=== PATIENT | female | born 1985 | race Caucasian/White ===

== ENCOUNTER 2017-02-13 05:26 | Emergency (ER) | payer OTHER ==
[2017-02-13] MEDS ORDERED: SODIUM CHLORIDE 0.9% 1,000 ML IV ONE ×2 (05:45→05:59)
[2017-02-13] MEDS ORDERED: ONDANSETRON 4 MG/2 ML VIAL ONE ×3 (05:45→07:42)
--- NOTE | 2017-02-13 05:48 | ED Physician Documentation ---
History of Present Illness - Stated complaint Stated Complaint: VOMITING,DIARRHEA - Chief complaint Chief Complaint: Abd Pain - History obtained from History obtained from: Patient - History of Present Illness Timing: Enter time (00:00 (midnight)), Today Pain level now: 7 (low back pain) Radiates to: does not radiate Improved by: rest Worsened by: movement - Additonal information Additional information: c/o sudden onset nausea, vomiting, diarrhea since midnight. also c/o low back pain midline which she attributes to driving for several hours per day for the past few days. Review of Systems Constitutional: reports: Reviewed and negative Cardiac: reports: Reviewed and negative Respiratory: reports: Reviewed and negative GI: reports: Nausea, Vomiting, Diarrhea. 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 HEENT: Tonsil/Adenoidectomy - Present Medications Home Medications: Ambulatory Orders Medication Instructions Recorded Confirmed Bcp 1 tab PO DAILY 02/13/17 Diphenoxylate/Atropine [Lomotil] 1 each PO QID PRN #14 tablet 02/13/17 Ondansetron Odt [Zofran] 4 mg TL Q6H PRN #10 tablet 02/13/17 Unisom 1 tab PO QPM 02/13/17 Venlafaxine HCl 1 tab PO DAILY 02/13/17 02/13/17 - Allergies Allergies/Adverse Reactions: Allergies Allergy/AdvReac Type Severity Reaction Status Date / Time No Known Drug Allergies Allergy Verified 02/13/17 05:33 PD ED PE NORMAL - Vitals Vital signs reviewed: Yes - General General: Alert and oriented X 3, No acute distress, Well developed/nourished - HEENT HEENT: Moist mucous membranes - Neck Neck: Supple, no meningeal sign - Cardiac Cardiac: RRR, No murmur - Respiratory Respiratory: No respiratory distress, Clear bilaterally - Abdomen Abdomen: Normal bowel sounds, Soft, Non tender, Non distended - Back Back: No CVA TTP, No spinal TTP - Derm Derm: Normal color, Warm and dry, No rash - Extremities Extremities: No edema Results - Vitals Vitals: Vital Signs - 24 hr 02/13/17 02/13/17 02/13/17 05:30 06:24 07:04 Temperature 35.9 C L Heart Rate 120 H 84 83 Respiratory 20 16 16 Rate Blood Pressure 116/83 H 100/54 L 110/67 O2 Saturation 99 100 100 02/13/17 08:31 Temperature 36.1 C L Heart Rate 80 Respiratory 16 Rate Blood Pressure 116/68 O2 Saturation 100 Oxygen O2 Source Room air - Labs Labs: Laboratory Tests 02/13/17 02/13/17 02/13/17 05:42 05:42 07:25 WBC 19.6 H RBC 5.22 Hgb 15.3 Hct 46.0 MCV 88.1 MCH 29.2 MCHC 33.2 RDW 12.9 Plt Count 310 MPV 8.4 Neut # 17.6 H Lymph # 1.0 L Irwin # 0.9 Eos # 0.1 Baso # 0.1 Absolute Nucleated RBC 0.00 Nucleated RBCs 0.0 Sodium 138 Potassium 3.1 L Chloride 104 Carbon Dioxide 22 Anion Gap 12.0 BUN 17 Creatinine 1.0 Estimated GFR (MDRD) 65 L Glucose 143 H Calcium 9.7 Total Bilirubin 0.6 AST 22 ALT 32 Alkaline Phosphatase 90 Total Protein 8.5 H Albumin 4.8 Globulin 3.7 Albumin/Globulin Ratio 1.3 Lipase 17 L Urine Color DARK YELLOW Urine Clarity CLEAR Urine pH 6.5 Ur Specific Reagan 1.025 Urine Protein 30 H Urine Glucose (UA) NEGATIVE Urine Ketones >=80 H Urine Occult Blood NEGATIVE Urine Nitrite POSITIVE H Urine Bilirubin NEGATIVE Urine Urobilinogen 0.2 (NORMAL) Ur Leukocyte Esterase NEGATIVE Urine RBC 0-5 Urine WBC 0-3 Ur Squamous Epith Cells FEW Squamous Urine Bacteria Many H Urine Mucus Moderate Strands Ur Microscopic Review INDICATED Urine HCG, Qual 02/13/17 07:25 WBC RBC Hgb Hct MCV MCH MCHC RDW Plt Count MPV Neut # Lymph # Irwin # Eos # Baso # Absolute Nucleated RBC Nucleated RBCs Sodium Potassium Chloride Carbon Dioxide Anion Gap BUN Creatinine Estimated GFR (MDRD) Glucose Calcium Total Bilirubin AST ALT Alkaline Phosphatase Total Protein Albumin Globulin Albumin/Globulin Ratio Lipase Urine Color Urine Clarity Urine pH Ur Specific Reagan 1.025 Urine Protein Urine Glucose (UA) Urine Ketones Urine Occult Blood Urine Nitrite Urine Bilirubin Urine Urobilinogen Ur Leukocyte Esterase Urine RBC Urine WBC Ur Squamous Epith Cells Urine Bacteria Urine Mucus Ur Microscopic Review Urine HCG, Qual NEGATIVE PD MEDICAL DECISION MAKING - ED course Complexity details: reviewed results, re-evaluated patient, considered differential, d/w patient Departure - Departure Disposition: 01 Home, Self Care Clinical Impression: Gastroenteritis Condition: Good Instructions: ED Gastroenteritis Viral Follow-Up: FACUNDO Dunne [Provider Group] Prescriptions: Diphenoxylate/Atropine [Lomotil] 1 each PO QID PRN #14 tablet PRN Reason: Diarrhea Ondansetron Odt [Zofran] 4 mg TL Q6H PRN #10 tablet PRN Reason: Nausea / Vomiting Discharge Date/Time: 02/13/17 08:31
[2017-02-13] MEDS ORDERED: ONDANSETRON 4 MG/2 ML VIAL IVP STA ×3 (05:58→07:39)
[2017-02-13 06:02] LABS: ALBUMIN/GLOBULIN RATIO 1.3 (1.0-2.2); BASOPHILS # (AUTO) 0.1 10^3/uL (0.0-0.1); BASOPHILS % (AUTO) 0.3 %; BILIRUBIN,TOTAL 0.6 mg/dL (0.2-1.0); CALCIUM 9.7 mg/dL (8.5-10.3); EOSINOPHILS # (AUTO) 0.1 10^3/uL (0.0-0.7); EOSINOPHILS % (AUTO) 0.6 %; HGB - HEMOGLOBIN 15.3 g/dL (12.0-16.0); LYMPHOCYTES % (AUTO) 4.9 %; MEAN CORPUSCULAR HEMOGLOBIN 29.2 pg (27.0-31.0); MEAN CORPUSCULAR HGB CONC 33.2 g/dL (32.0-36.0); MEAN CORPUSCULAR VOLUME 88.1 fL (81.0-99.0); MEAN PLATELET VOLUME 8.4 fL (7.9-10.8); MONOCYTES # (AUTO) 0.9 10^3/uL (0.0-1.0); MONOCYTES % (AUTO) 4.7 %; NEUTROPHILS # (AUTO) 17.6 10^3/uL (1.5-6.6); NEUTROPHILS % (AUTO) 89.5 %; POTASSIUM 3.1 mmol/L (3.5-5.0); RED BLOOD COUNT 5.22 10^6/uL (4.20-5.40); RED CELL DISTRIBUTION WIDTH 12.9 % (12.0-15.0); TOTAL PROTEIN 8.5 g/dL (6.7-8.2); UNCORRECTED WHITE BLOOD COUNT 19.6 x10^3/uL; WHITE BLOOD COUNT 19.6 x10^3/uL (4.8-10.8)
[2017-02-13] MEDS ORDERED: HYDROmorphone 1 MG/ML SYRINGE ONE (06:03)
[2017-02-13] MEDS ORDERED: HYDROmorphone 1 MG/ML SYRINGE IVP STA (06:03)
[2017-02-13] MEDS ORDERED: KETOROLAC 30 MG/ML VIAL IVP STA (06:04)
[2017-02-13] MEDS ORDERED: KETOROLAC 30 MG/ML VIAL ONE (06:05)
[2017-02-13 07:37] LABS: PH,URINE 6.5 PH (5.0-7.5)
[2017-02-13] MEDS ORDERED: SODIUM CHLORIDE 0.9% 1,000 ML IV STA (07:39)
[2017-02-13] MEDS ORDERED: DIPHENOX/ATROPINE 2.5/0.025 MG TABLET PO STA (07:39)
[2017-02-13] MEDS ORDERED: DIPHENOX/ATROPINE 2.5/0.025 MG TABLET PO ONE ×2 (07:42→07:47)
[2017-02-13 07:45] LABS: UA w/ MICROSCOPIC CHARGE YES
[2017-02-13 07:46] LABS: BILIRUBIN,URINE NEGATIVE (NEGATIVE)
[2017-02-13 07:56] LABS: WBC,URINE 0-3 /HPF (0-5)
[2017-02-13 08:28] LABS: HCG UR QUAL NEGATIVE
[2017-02-13 08:32] VITALS: BP 116/68
== END 2017-02-13 08:31 | disposition home or self-care (01) ==
LOC: ED 05:26
DX: K52.9 Noninfective gastroenteritis and colitis, unspecified (principal)
CPT/HCPCS: 36415; 80053; 81001; 81025; 83690; 85025; 96361; 96374; 96375; 96376; 99284; A9270; J1170; 81003

== ENCOUNTER 2017-05-20 05:20 | Emergency (ER) | payer OTHER ==
[2017-05-20] MEDS ORDERED: KETOROLAC 60 MG/2 ML VIAL IVP STA (05:28)
[2017-05-20] MEDS ORDERED: ACETAMINOPHEN 325 MG TABLET PO STA (05:28)
[2017-05-20] MEDS ORDERED: SODIUM CHLORIDE 0.9% 1,000 ML IV ONE (05:28)
[2017-05-20] MEDS ORDERED: diphenhydrAMINE INJ 50 MG/ML VIAL IVP STA (05:29)
[2017-05-20] MEDS ORDERED: METOCLOPRAMIDE 10 MG/2 ML VIAL IVP STA (05:29)
[2017-05-20] MEDS ORDERED: METOCLOPRAMIDE 10 MG/2 ML VIAL ONE (05:39)
[2017-05-20] MEDS ORDERED: diphenhydrAMINE INJ 50 MG/ML VIAL ONE (05:39)
[2017-05-20] MEDS ORDERED: ACETAMINOPHEN 325 MG TABLET PO ONE (05:39)
[2017-05-20] MEDS ORDERED: KETOROLAC 30 MG/ML VIAL ONE (05:40)
--- NOTE | 2017-05-20 05:40 | ED Physician Documentation ---
PD HPI HEADACHE - Stated complaint Stated Complaint: HEADACHE,VOMITING - Chief complaint Chief Complaint: Neuro - History obtained from History obtained from: Patient, Family - History of Present Illness Timing - onset: How many days ago (3) Timing - details: Gradual onset, Still present Location: Right, Left Quality: Aching, Stabbing Associated symptoms: Nausea, Vomiting, Eye pain. No: Fever, Stiff neck, Weakness, Numbness, Syncope, Seizure Improved by: Dark room Worsened by: Light Contributing factors: Recent illness. No: Anticoagulated, Possible carbon monoxide Similar symptoms before: Has not had sx before Recently seen: Not recently seen - Additional information Additional information: Patient is a 32 year old female who is presenting to the emergency department for headache. patient states that it started a couple of days ago. Patient states that it was very gradual and just got progressively worse over the last few days. Patient states that she had cold like symptoms for the last few days and that her daughter is sick. Patient states that she does have some photophobia and vomiting but denies any change in vision, neck pain or neurological deficit. Review of Systems Eyes: reports: Photophobia Ears: denies: Ear pain, Drainage/discharge Nose: denies: Rhinorrhea / runny nose, Congestion Throat: denies: Sore throat Cardiac: denies: Chest pain / pressure, Palpitations Respiratory: denies: Cough, Wheezing GI: reports: Nausea, Vomiting. denies: Constipation, Diarrhea : reports: Reviewed and negative Skin: reports: Reviewed and negative Musculoskeletal: denies: Neck pain, Back pain, Extremity pain Neurologic: reports: Headache. 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 HEENT: Tonsil/Adenoidectomy - Present Medications Home Medications: Ambulatory Orders Medication Instructions Recorded Confirmed Bcp 1 tab PO DAILY 02/13/17 Diphenoxylate/Atropine [Lomotil] 1 each PO QID PRN #14 tablet 02/13/17 Ondansetron Odt [Zofran] 4 mg TL Q6H PRN #10 tablet 02/13/17 Unisom 1 tab PO QPM 02/13/17 Venlafaxine HCl 1 tab PO DAILY 02/13/17 02/13/17 - Allergies Allergies/Adverse Reactions: Allergies Allergy/AdvReac Type Severity Reaction Status Date / Time No Known Drug Allergies Allergy Verified 05/20/17 05:26 - Social History Does the pt smoke?: No Smoking Status: Never smoker Does the pt drink ETOH?: No Does the pt have substance abuse?: No - Immunizations Immunizations are current?: Yes - POLST Patient has POLST: No PD ED PE NORMAL - Vitals Vital signs reviewed: Yes - General General: Alert and oriented X 3, Well developed/nourished - HEENT HEENT: Atraumatic, PERRL, Moist mucous membranes, Pharynx benign - Neck Neck: Supple, no meningeal sign, No JVD - Cardiac Cardiac: RRR, No murmur, No rub - Respiratory Respiratory: No respiratory distress, Clear bilaterally - Abdomen Abdomen: Soft, Non tender, Non distended - Derm Derm: Normal color, Warm and dry, No rash - Extremities Extremities: No deformity, Normal ROM s pain, No edema - Neuro Neuro: Alert and oriented X 3, 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 IV access was gained and patient was treated with fluids, toradol, reglan bendaryl and tylenol. within 20 minutes of the medications patient stated that her symptoms had essentially resolved and had gone from a 10 to a 1. Although serious etiology for the headache was considered, it was unlikely. Patient required no further work up and was stable for discharge with outpatient follow up. Departure - Departure Disposition: 01 Home, Self Care Clinical Impression: Headache Condition: Good Instructions: ED Cephalgia Unspecified Follow-Up: DWIGHT STUART [Primary Care Provider] - As Needed Comments: There are many different types of headaches so it is difficult to say what exactly caused your headache. If this is something that happens more frequently you might need to start writing down what you were doing, including diet before your headaches. You should stay well hydrated and take motrin and tylenol for pain. you should follow up with your pmd if your headache returns. You may return to the emergency department at any time for new, worsening or uncontrollable symptoms.
[2017-05-20 06:19] VITALS: BP 147/79
== END 2017-05-20 06:20 | disposition home or self-care (01) ==
LOC: ED 05:20
DX: R51 Headache (principal); R11.2 Nausea with vomiting, unspecified; H53.143 Visual discomfort, bilateral
CPT/HCPCS: 96361; 96374; 96375; 99284; A9270

== ENCOUNTER 2018-09-15 19:28 | Emergency (ER) | payer OTHER ==
[2018-09-15 19:44] VITALS: BP 125/82
[2018-09-15] MEDS ORDERED: CYCLOBENZAPRINE 10 MG TABLET PO STA (20:44)
[2018-09-15] MEDS ORDERED: HYDROcod/ACET 5/325 Prepack 4 PO STA (20:44)
--- NOTE | 2018-09-15 20:46 | ED Physician Documentation ---
PD HPI BACK PAIN - Stated complaint Stated Complaint: LOW MID BACK PX/VOM/CHILLS - Chief complaint Chief Complaint: Back Pain - History obtained from History obtained from: Patient - History of Present Illness Timing - onset: Today Timing - details: Gradual onset, Waxing and waning Location: Lower, Right, Left Quality: Pain Associated symptoms: No: Fever, Weakness, Numbness, Incontinent of urine, Unable to urinate, Hematuria, Incontinent of stool Improves with: Rest Worsened by: Movement Similar symptoms before: Has not had sx before Recently seen: Not recently seen Review of Systems Constitutional: denies: Fever, Chills, Sweats GI: denies: Abdominal Pain, Nausea, Vomiting : denies: Dysuria Skin: denies: Rash Musculoskeletal: reports: Back pain Neurologic: denies: Focal weakness, Numbness PD PAST MEDICAL HISTORY - Past Medical History Past Medical History: Yes Cardiovascular: None Respiratory: None Neuro: None Endocrine/Autoimmune: None GI: None OPERATIONS AND MAINTENANCE SPECIALIST: None : None HEENT: None Psych: Anxiety Musculoskeletal: None Derm: None - Past Surgical History Past Surgical History: Yes General: Cholecystectomy, 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 HEENT: Myringotomy (tubes), Tonsil/Adenoidectomy - Present Medications Home Medications: Ambulatory Orders Medication Instructions Recorded Confirmed Bcp 1 tab PO DAILY 02/13/17 05/20/17 Ondansetron Odt [Zofran] 4 mg TL Q6H PRN #10 tablet 02/13/17 05/20/17 Venlafaxine HCl 1 tab PO DAILY 02/13/17 05/20/17 Cyclobenzaprine [Flexeril] 10 mg PO TID PRN #20 tablet 09/15/18 Hydrocodone/Acetaminophen 1 - 2 each PO Q6H PRN #14 tablet 09/15/18 [Hydrocodon-Acetaminophen 5-325] - Allergies Allergies/Adverse Reactions: Allergies Allergy/AdvReac Type Severity Reaction Status Date / Time No Known Drug Allergies Allergy Verified 09/15/18 19:44 - Social History Does the pt smoke?: Yes Smoking Status: Current every day smoker Does the pt drink ETOH?: Yes ETOH Use: Wine, Beer Does the pt have substance abuse?: No - Immunizations Immunizations are current?: Yes - POLST Patient has POLST: No PD ED PE NORMAL - Vitals Vital signs reviewed: Yes - General General: Alert and oriented X 3, No acute distress (NAD at rest, appears to have mild painful discomfort with movement involving lower back), Well developed/nourished - Abdomen Abdomen: Soft, Non tender - Back Back: No CVA TTP, No spinal TTP - Derm Derm: Normal color, Warm and dry, No rash Results - Vitals Vitals: Vital Signs - 24 hr 09/15/18 19:40 Temperature 36.8 C Heart Rate 108 H Respiratory 16 Rate Blood Pressure 125/82 H O2 Saturation 98 Oxygen O2 Source Room air PD MEDICAL DECISION MAKING - ED course Complexity details: considered differential, d/w patient Departure - Departure Disposition: Home, Self Care Clinical Impression: Back pain Qualifiers: Back pain location: low back pain Chronicity: acute Back pain laterality: midline Sciatica presence: without sciatica Qualified Code(s): M54.5 - Low back pain Condition: Good Instructions: ED Neck Back Pain General Follow-Up: Ashley Mckeon ARNP [Primary Care Provider] - Within 1 week Prescriptions: Cyclobenzaprine [Flexeril] 10 mg PO TID PRN #20 tablet PRN Reason: Spasms Hydrocodone/Acetaminophen [Hydrocodon-Acetaminophen 5-325] 1 - 2 each PO Q6H PRN #14 tablet PRN Reason: pain Discharge Date/Time: 09/15/18 21:07
== END 2018-09-15 21:07 | disposition home or self-care (01) ==
LOC: ED 19:28
DX: M54.5 Low back pain (principal); F17.200 Nicotine dependence, unspecified, uncomplicated
CPT/HCPCS: 99283

== ENCOUNTER 2019-04-25 13:33 | Emergency (ER) | payer OTHER ==
--- NOTE | 2019-04-25 16:08 | ED Physician Documentation ---
PD HPI DYSPNEA - Stated complaint Stated Complaint: SOA - Chief complaint Chief Complaint: Resp - History obtained from History obtained from: Patient - History of Present Illness Timing - onset: How many weeks ago (2) Recently seen: Clinic (She was prescribed albuterol 10 days ago, but it is not helping.) - Treatment prior to arrival Treatment prior to arrival: albuterol inhaler. - Additional information Additional information: The patient is a 34-year-old female who presents with chest tightness stating "I can't take a deep breath." Her symptoms started about 2 weeks ago and have been worse since yesterday. She denies cough or fever. She has been using albuterol inhaler for the past 10 days, without relief. She denies history of similar symptoms in the past. She quit smoking cigarettes in 2010. Review of Systems Constitutional: denies: Fever Nose: denies: Congestion Throat: denies: Sore throat Cardiac: reports: Chest pain / pressure (with respiratory inspiration.) Respiratory: reports: Dyspnea (With respiratory inspiration.). 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 HEENT: Myringotomy (tubes), Tonsil/Adenoidectomy - Present Medications Home Medications: Ambulatory Orders Medication Instructions Recorded Confirmed Venlafaxine HCl 1 tab PO DAILY 02/13/17 04/25/19 - Allergies Allergies/Adverse Reactions: Allergies Allergy/AdvReac Type Severity Reaction Status Date / Time No Known Drug Allergies Allergy Verified 09/15/18 19:44 - Social History Does the pt smoke?: No Smoking Status: Former smoker (Quit in 2010.) Does the pt drink ETOH?: No Does the pt have substance abuse?: No - Immunizations Immunizations are current?: Yes - POLST Patient has POLST: No PD ED PE NORMAL - Vitals Vital signs reviewed: Yes (borderline hypertension initially.) - General General: Alert and oriented X 3, Well developed/nourished - HEENT HEENT: Atraumatic, EOMI, Ears normal, Pharynx benign - Neck Neck: No adenopathy, No JVD - Cardiac Cardiac: RRR, No murmur - Respiratory Respiratory: No respiratory distress, Clear bilaterally, Other (No chest wall tenderness to palpation.) - Abdomen Abdomen: Soft, Non tender, No organomegaly - Back Back: No CVA TTP - Derm Derm: No rash - Extremities Extremities: No edema, No calf tenderness / cord - Neuro Neuro: Alert and oriented X 3, No motor deficit, Normal speech Results - Vitals Vitals: Oxygen O2 Source Room air - Labs Labs: Laboratory Tests 04/25/19 04/25/19 04/25/19 16:47 16:47 16:47 WBC 7.6 RBC 4.52 Hgb 13.6 Hct 40.3 MCV 89.2 MCH 30.1 MCHC 33.7 RDW 12.3 Plt Count 276 MPV 9.8 Neut # (Auto) 4.6 Lymph # (Auto) 2.2 [place] # (Auto) 0.6 Eos # (Auto) 0.2 Baso # (Auto) 0.1 Absolute Nucleated RBC 0.00 Nucleated RBC % 0.0 D-Dimer 469.2 H Sodium 138 Potassium 4.0 Chloride 103 Carbon Dioxide 26 Anion Gap 9.0 BUN 12 Creatinine 0.8 Estimated GFR (MDRD) 82 L Glucose 90 Calcium 9.2 Total Bilirubin 0.7 AST 32 ALT 64 H Alkaline Phosphatase 87 Total Protein 7.6 Albumin 4.1 Globulin 3.5 Albumin/Globulin Ratio 1.2 Lipase 34 - Rads (name of study) CT pulm angio Radiology: Prelim report reviewed, See rad report (No pulmonary emboli.) CXR Radiology: Prelim report reviewed, EMP read contemporaneously, See rad report (No acute cardiopulmonary process.) PD MEDICAL DECISION MAKING - ED course Complexity details: reviewed results, re-evaluated patient, considered differential, d/w patient ED course: The cause for the patient's dyspnea is unclear at this time. There is no clinical evidence to suggest pneumonia, and there is no evidence of pneumothorax on chest x-ray. Her breath sounds are clear, without evidence of asthma. Her d- dimer is mildly elevated at 469, but a CT pulmonary angiogram reveals no evidence of pulmonary embolus. on examination the patient appears to be in no distress. I discussed with her the results of her workup, outpatient follow-up, as well as potentially worrisome signs or symptoms that should prompt reevaluation in the emergency department. Departure - Departure Disposition: 01 Home, Self Care Clinical Impression: Dyspnea Qualifiers: Dyspnea type: shortness of breath Qualified Code(s): R06.02 - Shortness of breath Condition: Stable Instructions: ED Dyspnea Shortness of Breath Follow-Up: Ashley Mckeon ARNP [Primary Care Provider] - Comments: Your work-up today included chest x-ray and CT pulmonary angiogram, both of which were normal, revealing no evidence of pneumonia, collapsed lung, or pulmonary embolus. Follow-up with your primary physician within 1 week as scheduled. Return to the emergency department if you develop increasing difficulty breathing, or otherwise worsening symptoms. Discharge Date/Time: 04/25/19 20:06
--- NOTE | 2019-04-25 16:48 | XRAY Report ---
Reason: dyspnea Procedure Date: 04/25/2019 Accession Number: [id number] / [id number] Procedure: XR - Chest 2 View X-Ray CPT Code: 22651 FULL RESULT: EXAM: CHEST RADIOGRAPHY EXAM DATE: 04/25/2019 04:26 PM. CLINICAL HISTORY: Dyspnea. COMPARISON: None. TECHNIQUE: 2 views. FINDINGS: Lungs/Pleura: No focal opacities evident. No pleural effusion. No pneumothorax. Normal volumes. Mediastinum: Heart and mediastinal contours are unremarkable. Other: None. IMPRESSION: No acute cardiopulmonary process. RADIA
[2019-04-25 16:58] LABS: BASOPHILS # (AUTO) 0.1 10^3/uL (0.0-0.1); BASOPHILS % (AUTO) 0.7 %; EOSINOPHILS # (AUTO) 0.2 10^3/uL (0.0-0.7); HGB - HEMOGLOBIN 13.6 g/dL (12.0-16.0); LYMPHOCYTES # (AUTO) 2.2 10^3/uL (1.5-3.5); LYMPHOCYTES % (AUTO) 28.3 %; MEAN CORPUSCULAR HEMOGLOBIN 30.1 pg (27.0-31.0); MEAN CORPUSCULAR HGB CONC 33.7 g/dL (32.0-36.0); MEAN CORPUSCULAR VOLUME 89.2 fL (81.0-99.0); MEAN PLATELET VOLUME 9.8 fL (7.9-10.8); MONOCYTES # (AUTO) 0.6 10^3/uL (0.0-1.0); MONOCYTES % (AUTO) 8.1 %; NEUTROPHILS # (AUTO) 4.6 10^3/uL (1.5-6.6); NEUTROPHILS % (AUTO) 60.6 %; PLT - PLATELET COUNT 276 10^3/uL (130-450); RED BLOOD COUNT 4.52 10^6/uL (4.20-5.40); RED CELL DISTRIBUTION WIDTH 12.3 % (12.0-15.0); WHITE BLOOD COUNT 7.6 x10^3/uL (4.8-10.8)
[2019-04-25 17:15] LABS: ALBUMIN 4.1 g/dL (3.2-5.5); ALBUMIN/GLOBULIN RATIO 1.2 (1.0-2.2); BILIRUBIN,TOTAL 0.7 mg/dL (0.2-1.0); CALCIUM 9.2 mg/dL (8.5-10.3); CREATININE 0.8 mg/dL (0.4-1.0); TOTAL PROTEIN 7.6 g/dL (6.7-8.2)
[2019-04-25] MEDS ORDERED: IOVERSOL 320 100 ML VIAL IVP ONE ×2 (17:35→18:58)
[2019-04-25 19:21] VITALS: BP 134/91
--- NOTE | 2019-04-25 19:48 | CT Report ---
Reason: dyspnea with elevated d-dimer Procedure Date: 04/25/2019 Accession Number: [id number] / [id number] Procedure: CT - ANGIO CHEST W/WO CPT Code: FULL RESULT: EXAM: CT ANGIOGRAM CHEST EXAM DATE: 04/25/2019 06:57 PM. CLINICAL HISTORY: Dyspnea with elevated d-dimer. COMPARISON: CHEST 2 VIEW 04/25/2019 4:15 PM. TECHNIQUE: Routine helical imaging was performed through the chest in the pulmonary arterial phase. IV Contrast: OPTI 320 80ML. Reconstructions: Coronal 3-D MIP reconstructions.Sagittal and coronal. In accordance with CT protocol optimization, one or more of the following dose reduction techniques were utilized for this exam: automated exposure control, adjustment of mA and/or KV based on patient size, or use of iterative reconstructive technique. FINDINGS: Pulmonary Arteries: Diagnostic quality: Adequate through the segmental arteries. No evidence for acute or chronic pulmonary emboli. RV/LV is within normal limits. There is no interventricular septal bowing. There is no reflux of contrast material in the IVC. Lungs/Pleura: No consolidation, pleural effusion or pneumothorax. Patent airways. There are a few subcentimeter subpleural nodular densities that are of unlikely clinical significance measuring up 4-5 mm. Mediastinum: The heart is normal in size. No lymphadenopathy identified. Thoracic Aorta: Unremarkable. Upper Abdomen: Unremarkable. Other: None. IMPRESSION: No pulmonary emboli. RADIA
== END 2019-04-25 20:06 | disposition home or self-care (01) ==
LOC: ED 13:33
DX: R06.02 Shortness of breath (principal); R07.89 Other chest pain; Z87.891 Personal history of nicotine dependence
CPT/HCPCS: 36415; 71046; 71275; 80053; 83690; 85025; 85379; 99284; Q9967